=== PATIENT | female | born 1940 | race Asian ===

== ENCOUNTER → 2016-10-19 | Outpatient (CLI) | payer OTHER ==
[2016-10-19 14:24] LABS: BLOOD UREA NITROGEN 12 mg/dl (7-18); CREATININE 0.95 mg/dl (0.60-1.20); GLUCOSE 99 mg/dl (70-99)
[2016-10-19 14:25] LABS: ALT/SGPT 30 U/L (12-78); BASO % 0.9 %; BASO ABS # 0.06 K/uL (0-0.2); BUN/CREATININE RATIO 13.1 (10-20); CARBON DIOXIDE 30 mmol/L (21-32); CHLORIDE 103 mmol/L (98-107); CHOLESTEROL 201 mg/dl (0-200); COMPLETE YES; EOS % 0.7 %; HEMATOCRIT 35.7 % (37-47); IG% 0.3 %; LYMPH % 30.1 %; LYMPH ABS # 2.05 K/uL (1.2-3.4); MEAN CORPUSCULAR HEMOGLOBIN 31.2 pg (25-34); MEAN CORPUSCULAR HGB CONC 33.9 g/dl (32-36); MEAN PLATELET VOLUME 10.6 fL (7.4-10.4); PLATELET COUNT 263 K/uL (130-400); POTASSIUM 3.5 mmol/L (3.5-5.1); RED BLOOD COUNT 3.88 M/uL (4.2-5.4); SODIUM 140 mmol/L (136-145); TRIGLYCERIDES 252 mg/dl (0-150); VERY LOW DENSITY LIPOPROT CALC 50 mg/dl
[2016-10-19 14:39] LABS: ALKALINE PHOSPHATASE 62 U/L (45-117); AST/SGOT 20 U/L (15-37); CHOLESTEROL/HDL RATIO 3.6; HDL CHOLESTEROL 56 mg/dl; LDL CHOLESTEROL CALCULATED 95 mg/dl
== END | disposition home or self-care (01) ==
LOC: C.LABBC 11:31
PROVIDERS: ATTEND Internal Medicine
DX: M81.0 Age-related osteoporosis without current pathological fracture (principal); E78.5 Hyperlipidemia, unspecified